=== PATIENT | female | born 1965 | race Caucasian/White ===

== ENCOUNTER 2018-01-07 23:39 | Emergency (ER) | payer OTHER ==
[~2018-01-07] VITALS: Ht 172.7 cm; Wt 126.4 kg
[~2018-01-07 23:39] MED LIST: ALBUTEROL SULF8.5 GM IH; ALBUTEROL17 GM IH; ALEVE220 MG PO; ASCORBIC ACID500 M3 PO; AZITHROMYCIN500 M1 PO; BACTRIM,SEPT1 TABLET PO; CELECOXIB200 MG PO; CYCLOBENZAPRINE10 MG PO; DOCUSATE SODIU100 MG PO; DOK PLUS TABLE1 EACH PO; FLEXERIL10 MG PO; FOLIC ACID1 MG PO; HYDROCODON-ACE1 EAC7 PO; LEVAQUIN750 MG PO; LORTAB 5-325 M1 EACH PO; LOVENOX40 MG/0.4 SC; MOTRIN800 MG PO; NOHOMEMEDS; OXYCODONE-APAP1 EACH PO; PERCOCET 5/31 TABLET PO; PREDNISONE20 MG PO; PROVENTIL HFA6.7 GM IH; THERAGRAN1 TABLET PO; TRAMADOL HCL50 MG PO; ULTRAM50 MG PO; VENTOLIN HFA18 GM IH; ZOFRAN ODT4 MG PO; ZOVIRAX800 M1 PO; ZYRTEC10 M1 PO
[2018-01-08 00:54] LABS: APPEARANCE CLEAR ((CLEAR)); BILIRUBIN NEGATIVE; BLOOD NEGATIVE; COLOR STRAW ((YELLOW)); GLUCOSE (STRIP) NEGATIVE; KETONES NEGATIVE; LEUKOCYTES NEGATIVE; NITRITE NEGATIVE; PROTEIN (STRIP) NEGATIVE; SPECIFIC GRAVITY 1.009 (1.000-1.030); UCUL ADDED? NO; UROBILINOGEN 0.2 MG/DL (0.2-1.0)
[2018-01-08 01:00] LABS: HEMOGLOBIN 15.3 G/DL (11.9-15.5); MCH 31.8 PG (29.0-34.0); MCV 93.6 FL (83-99); PLATELET COUNT 267 K/uL (156-360); RBC DIS.WIDTH-CV 13.7 % (11.8-14.6); RBC DIS.WIDTH-SD 47.8 % (39-53); RED BLOOD COUNT 4.81 M/uL (3.80-5.20); WHITE BLOOD COUNT 9.9 K/uL (4.1-10.2)
[2018-01-08 01:13] LABS: CHLORIDE 107 mEq/L (99-109); POTASSIUM 4.1 mEq/L (3.7-5.4); SODIUM 142 mEq/L (136-147)
[2018-01-08 01:15] LABS: GLUCOSE 105 mg/dL (70-99)
[2018-01-08 01:18] LABS: CREATININE 0.9 mg/dL (0.6-1.3); GFR ESTIMATE (CALCULATED) > 59 mL/min/
[2018-01-08 01:19] LABS: UREA NITROGEN (BUN) 8 mg/dL (9-23)
[2018-01-08] MEDS ORDERED: LIDODERM 5% P1 PATCH TD (04:33)
[2018-01-08] MEDS ORDERED: ULTRAM50 MG PO (04:33)
[2018-01-08 05:19] VITALS: BP 133/106
== END 2018-01-08 05:20 | disposition home or self-care (01) ==
LOC: EME 23:39
DX: M54.5 Low back pain (principal); Z87.442 Personal history of urinary calculi; Z86.19 Personal history of other infectious and parasitic diseases; J45.909 Unspecified asthma, uncomplicated; Z87.891 Personal history of nicotine dependence
CPT/HCPCS: 80048; 81003; 85027; 99281; 99284